=== PATIENT | female | born 1930 | race Caucasian/White ===

== ENCOUNTER 2016-06-12 15:11 | Emergency (ER) | payer OTHER ==
[~2016-06-12] VITALS: Ht 170.2 cm; Wt 65.4 kg
--- NOTE | ~2016-06-12 | EKG ---
[place] [address] [facility] [employer] 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
[~2016-06-12 15:11] MED LIST: ASPIRIN81 M2 PO; HYDROCODON-ACE1 EAC7 PO; HYDROCODONE-AP1 EA11 PO; LEVOTHYROXINE100 MC1 PO; LEVOXYL100 MCG PO; MOBIC7.5 M1 PO; NAPROSYN500 MG PO; NEURONTIN 300300 M1 PO; PRESERVISION T1 EACH PO; RA GLUCOSAMINE PO
[2016-06-12 15:29] LABS: ABSOLUTE NEUTROPHILS 2.9 thou/uL (1.4-8.2); BASOPHILS 1.2 % (0.0-2.0); EOSINOPHILS 2.2 % (0.0-3.0); HEMATOCRIT 39.8 % (37.0-47.0); HEMOGLOBIN 13.3 gm/dL (12.0-15.0); LYMPHOCYTES 39.2 % (24.0-44.0); MCH 29.9 pg (26.0-34.0); MCHC 33.4 g/dL (28.0-37.0); MCV 89.6 fL (80.0-100.0); MONOCYTES 11.1 % (1.0-8.0); PLATELET COUNT 220 thou/uL (150-400); POLYS 46.3 % (36.0-66.0); RBC 4.45 mil/uL (4.20-5.00); RDW 14.5 % (10.5-14.5); WBC 6.2 thou/uL (4.0-11.0)
[2016-06-12 15:30] LABS: MANUAL DIFF NO
[2016-06-12 15:35] LABS: ANION GAP 13 mmol/L (7-16); BUN 17 mg/dL (7-18); CALCIUM 9.3 mg/dL (8.5-10.1); CHLORIDE 101 mmol/L (98-107); CO2 23 mmol/L (21-32); GLUCOSE 118 mg/dL (74-106); POTASSIUM 3.8 mmol/L (3.5-5.1); SODIUM 137 mmol/L (136-145)
[2016-06-12 15:47] LABS: NT-PRO BRAIN NAT PEPTIDE 152 pg/mL (<300); TROPONIN-I < 0.04 ng/mL (<0.04-0.07)
[2016-06-12 16:55] LABS: URINE BILIRUBIN NEGATIVE (Negative); URINE BLOOD NEGATIVE (Negative); URINE COLOR YELLOW; URINE GLUCOSE-RANDOM* NEGATIVE (Negative); URINE KETONES 3+ (Negative); URINE NITRITE NEGATIVE (Negative); URINE PROTEIN (DIPSTICK) TRACE (Negative); URINE SPECIFIC GRAVITY 1.015 (1.003-1.035); URINE UROBILINOGEN 0.2 E.U./dl (0.2-1.0)
[2016-06-12] MEDS ORDERED: ANTIVERT25 MG PO (17:10)
== END 2016-06-12 17:15 | disposition home or self-care (01) ==
LOC: ER 15:11
PROVIDERS: Nurse Practitioner
DX: R42 Dizziness and giddiness (principal); Z90.89 Acquired absence of other organs; Z90.710 Acquired absence of both cervix and uterus; Z88.0 Allergy status to penicillin; Z88.8 Allergy status to other drugs, medicaments and biological substances

== ENCOUNTER → 2018-01-17 | Outpatient (CLI) | payer OTHER ==
[~2018-01-17] MED LIST changes: +ANTIVERT25 MG PO
== END ==
LOC: BC 01:14
DX: Z12.31 Encounter for screening mammogram for malignant neoplasm of breast (principal)

== ENCOUNTER → 2019-02-13 | Outpatient (CLI) | payer OTHER | LOC: RAD 02-10 11:31 | DX: Z12.31 Encounter for screening mammogram for malignant neoplasm of breast (principal) ==

== ENCOUNTER 2020-11-16 09:48 | Inpatient (IN) | payer OTHER ==
[~2020-11-16] VITALS: Ht 162.6 cm; Wt 58.5 kg
--- NOTE | ~2020-11-16 | EMS ---
[place] [id number] EMS Patient Care Report Name: LIZY SZYMANSKI Room #: 208-P ADM IN M.R.#: [id number] Admission: 11/16/20 Attend Phys: Enrrique Leon MD Discharge: Date of : 32 Report #: [id number] THIS REPORT FOR: //name// Report Transmitted: 11/17/2020 12:27 EMS Care Summary [place], [place] Incident [id number] @ 11/16/2020 08:56 Incident Location [address] [place] [address] Patient LIZY SZYMANSKI Female, 89 Years 1930 Patient Address [address] [place] [address] Patient History Dementia, Chief Complaint DIFFICULTY SPEAKING Disposition Transported No Lights/Mildred Dispatch Reason Stroke/CVA Transported To [facility] Narrative MEDIC 30 RESPONDS TO A RESIDENCE ON A REPORTED SICK. UPON ARRIVAL EMS FINDS ELDERLY FEMALE SITTING UPRIGHT IN WHEEL CHAIR WITH PT'S DAUGHTER NEARBY, AND FIREFIGHTERS PROVIDING ASSESSMENT. DAUGHTER REPORTS NOTICING PT HAVING DIFFICULTY SPEAKING THIS MORNING WITH SOME MINOR BALANCE PROBLEMS FOR THE PAST APPROXIMATE 90 MINUTES. DAUGHTER STATES PT APPEARED TO BE AT BASELINE THIS AM LEADING UP TO ONSET OF SYMPTOMS. FIREFIGHTERS DESCRIBE PT HAVING WHAT SEEMS SIMILAR TO EXPRESSIVE DYSPHASIA. PT APPEARS ABLE TO RESPOND VERBALLY TO ASSESSMENT QUESTIONS THE MAJORITY OF THE TIME, HOWEVER NOT ALL OF THE TIME. PT [address] [place] [address] EMS Patient Care Report Name: LIZY SZYMANSKI Room #: 208-P ADM IN M.R.#: [id number] Admission: 11/16/20 Attend Phys: Enrrique Leon MD Discharge: Date of : 32 Report #: [id number] APPEARS TO OCCASIONALLY HAVE A MILD STUTTER FOLLOWED BY INABILITY TO VERBALIZE HER THOUGHTS. WHEN ABLE TO SPEAK, PT'S SPEECH APPEARS NON SLURRED AND MOVEMENT OF MOUTH APPEARS NORMAL WITH NO OBVIOUS DROOP. NO OBVIOUS ONE SIDED EXTREMITY WEAKNESS NOTED. DAUGHTER DESCRIBES BALANCE ISSUES PT HAVING MILD/SLOW LEANING BACKWARD WHILE STANDING SINCE SYMPTOMS BEGAN. PT DENIES RECENT TRAUMA. PT TRANSPORTED WITH ONGOIG ASSESSMENT. REPORT TO STAFF UPON ARRIVAL. Initial Vitals @09:32P: 62,R: 13,BP: 137/81,CO: 3,SpO2: 99, @09:17P: 38,R: 12,CO: 3,SpO2: 99, @09:28P: 63,R: 14,CO: 2,SpO2: 99, @09:15P: 64,R: 13,BP: 153/76,Pain: 0/10,GCS: 15,Glucose: 85,Revised Trauma: 12, Assessments @09:35MENTAL:Person Oriented,Time Oriented,Event Oriented,Place Oriented,SKIN:HEENT:Head/Face: No Abnormalities,Neck/Airway: No Abnormalities,LUNG SOUNDS:ABDOMEN:PELVIS//GI:EXTREMITIES:Left Arm: No Abnormalities,Right Arm: No Abnormalities,Left Leg: No Abnormalities,Right Leg: No Abnormalities,PULSE:Radial: 2+ Normal,NEURO:@09:36MENTAL:Time Oriented,Person Oriented,Event Oriented,Place Oriented,SKIN:HEENT:Head/Face: No Abnormalities,Neck/Airway: No Abnormalities,LUNG SOUNDS:ABDOMEN:PELVIS//GI:EXTREMITIES:Left Arm: No Abnormalities,Right Arm: No Abnormalities,Left Leg: No Abnormalities,Right Leg: No Abnormalities,PULSE:Radial: 2+ Normal,NEURO: Impression Generalized Weakness Procedures @09:08ALS AssessmentResponse: UnchangedSucceeded@09:12StretcherResponse: Unchanged@09:163-Lead ECGResponse: UnchangedSucceeded Timeline 08:53,Call Received 08:53,Dispatch Notified 08:56,Dispatched 08:56,En Route 09:06,On Scene 09:08,At Patient 09:08,ALS Assessment,Response: UnchangedSucceeded, 09:12,Stretcher,Response: Unchanged 09:15,BP: 153/76 M,PULSE: 64,RR: 13 R,SPO2: Ox,ETCO2: ,B,PAIN: 0,GCS: 15, 09:16,3-Lead ECG,Response: UnchangedSucceeded, 09:17,BP: / M,PULSE: 38,RR: 12 R,SPO2: 99 Ox,ETCO2: ,BG: ,PAIN: ,GCS: , 09:28,BP: / M,PULSE: 63,RR: 14 R,SPO2: 99 Ox,ETCO2: ,BG: ,PAIN: ,GCS: , 09:32,BP: 137/81 M,PULSE: 62,RR: 13 R,SPO2: 99 Ox,ETCO2: ,BG: ,PAIN: ,GCS: , [facility] [address] [place] [address] EMS Patient Care Report Name: LIZY SZYMANSKI Room #: 208-P ADM IN M.R.#: [id number] Admission: 11/16/20 Attend Phys: Enrrique Leon MD Discharge: Date of : 32 Report #: [id number] 10:15,Depart Scene 10:15,At Destination 10:22,Call Closed Disclaimer v1.1 Copyright 2020 [employer] This EMS Care Summary contains data elements from the applicable legal record (which may be displayed differently). It is designed to provide pertinent information for the following purposes: continuity of care, clinical quality, and state data reporting. The complete legal record is available to ED staff and administrators of the receiving hospital in [employer]'s Patient Tracker. All data is provided "as is."
[2020-11-16 09:50] VITALS: BP 167/71
[2020-11-16] MEDS ORDERED: CELEXA 20 MG TA20 MG PO (10:08)
[2020-11-16] MEDS ORDERED: MEMANTINE HCL10 MG PO (10:09)
[2020-11-16 10:14] LABS: HEMATOCRIT 39.7 % (37.0-47.0); HEMOGLOBIN 12.9 gm/dL (12.0-15.0); MCH 30.3 pg (26.0-34.0); MCHC 32.6 g/dL (28.0-37.0); MCV 93.2 fL (80.0-100.0); RBC 4.26 mil/uL (4.20-5.00); RDW 14.9 % (10.5-14.5); WBC 6.4 thou/uL (4.0-11.0)
[2020-11-16 10:24] LABS: CALCIUM 9.7 mg/dL (8.5-10.1); CREATININE 1.1 mg/dL (0.6-1.0); POTASSIUM 4.6 mmol/L (3.5-5.1)
[2020-11-16 10:34] LABS: ALBUMIN 3.7 g/dL (3.4-5.0); TOTAL BILIRUBIN 0.5 mg/dL (0.2-1.0); TOTAL PROTEIN 7.3 g/dL (6.4-8.2)
[2020-11-16 11:44] LABS: URINE BILIRUBIN NEGATIVE (Negative); URINE BLOOD NEGATIVE (Negative); URINE CLARITY CLEAR; URINE COLOR YELLOW; URINE GLUCOSE-RANDOM* NEGATIVE (Negative); URINE KETONES NEGATIVE (Negative); URINE LEUKOCYTES-REFLEX NEGATIVE (Negative); URINE NITRITE-REFLEX NEGATIVE (Negative); URINE PROTEIN (DIPSTICK) NEGATIVE (Negative); URINE UROBILINOGEN 0.2 E.U./dl (0.2-1.0)
[2020-11-16 18:01] VITALS: BP 131/59
[2020-11-16 18:30] VITALS: BP 124/49
[2020-11-16 18:50] VITALS: BP 141/76
[2020-11-16 19:40] VITALS: BP 140/67
[2020-11-16 23:18] VITALS: BP 128/66
[2020-11-17 03:06] LABS: GLYCOHEMOGLOBIN (HGB A1C) 5.5 % (4.8-5.6)
[2020-11-17 03:30] VITALS: BP 127/58
[2020-11-17 05:09] LABS: CALCIUM 8.1 mg/dL (8.5-10.1); POTASSIUM 3.9 mmol/L (3.5-5.1)
[2020-11-17 05:13] LABS: CHOLESTEROL 223 mg/dL (<200); HDL CHOLESTEROL 59 mg/dL (>40); LDL CHOLESTEROL 154 mg/dL (<100); TC:HDL 3.8 Ratio (Not establshd); TRIGLYCERIDE 51 mg/dL (<150); VLDL 10 mg/dL (<40)
[2020-11-17 05:23] LABS: HEMATOCRIT 33.2 % (37.0-47.0); HEMOGLOBIN 11.3 gm/dL (12.0-15.0); MCH 31.2 pg (26.0-34.0); MCV 91.8 fL (80.0-100.0); RBC 3.62 mil/uL (4.20-5.00); RDW 14.9 % (10.5-14.5); WBC 6.1 thou/uL (4.0-11.0)
[2020-11-17 05:26] LABS: SERUM ASSESSMENT Clear
[2020-11-17 07:58] VITALS: BP 146/84
--- NOTE | 2020-11-17 08:20 | EKG ---
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: : 1930 Requested By: Yaritza Ceballos Order Number: [id number] MD: Panfilo Adams Measurements Intervals [place] Rate: 68 P: 69 GA: 167 QRS: 25 QRSD: 134 T: 30 QT: 441 QTc: 470 Interpretive Statements Sinus rhythm Right bundle branch block Baseline wander in lead(s) V6 Compared to ECG 06/12/2016 15:21:57 Ventricular premature complex(es) no longer present Electronically Signed On 11-17-2020 8:19:59 CDT by Panfilo Adams [email or web address] <ELECTRONICALLY SIGNED> By: Panfilo Adams MD, [facility] 11/17/20 0819 1010 1010 Panfilo Adams MD, [facility] /EPI
[2020-11-17] MEDS ORDERED: NAPROXEN500 MG PO (08:31)
[2020-11-17] MEDS ORDERED: MEGESTROL40 MG/1 M1 PO (08:32)
[2020-11-17] MEDS ORDERED: VITAMIN D3-ALO1 EACH PO (08:34)
[2020-11-17] MEDS ORDERED: VITAMIN B-125000 MCG PO (08:36)
[2020-11-17] MEDS ORDERED: SUPER THERAVIT1 EACH PO (08:41)
--- NOTE | 2020-11-17 09:13 | NUR ---
ADMIT PROCESS COMPLETED. DENIES COMPLAINTS. PATIENT ORIENTED TO SELF. PULLED IV OUT THIS AM AND TRYING TO GET OUT OF BED. BED ALARM ON AND 3 SIDE RAILS UP. MAINTAIN SAFE ENVIRONEMT. DAUGHTER UPDATED AND WILL BE HERE SOON. PATIENT NOTIFIED DAUGHTER IS ON WAY.
[2020-11-17 12:00] VITALS: BP 146/70
--- NOTE | 2020-11-17 14:05 | NUR ---
INITIAL ASSESSMENT: SW reviewed chart and spoke with nursing and attending physician. Pt was admitted from home due to AMS. Neuro consulted. MRI ordered today. 5N consulted. Pt with hx of dementia. SW met with pt and dtr at bedside. Introduced role of SW. Pt is alert/orientated to self and place. Pt's dtr lives with pt and provides 24 hour care. Prior to admission, pt was able to ambulate with a walker. There are about 14 steps inside the home, which pt has been able to navigate. Pt's dtr states pt became weak yesterday and when sat her down, pt was slow to respond and answer questions. Pt had SBO earlier this year and was hospitalized at [facility]. Pt was on the inpt acute rehab unit at [facility] for about week, then went home with HH. Pt's dtr was unsure of HH provider. Pt's PCP is Dr. Eugenia Bueno in [place]. Pt's neurologist is Dr. Ramos at [facility]. Pt's dtr is agreeable with pt going to if accepted. PT/OT have evaluated pt. Awaiting input from at this time. SW has discussed case with rehabilitation attendant. SW updated attending physician. SW is following to assist as needed with discharge planning.
[2020-11-17 16:47] VITALS: BP 135/67
[2020-11-17 19:59] VITALS: BP 134/63
--- NOTE | 2020-11-17 20:12 | NUR ---
PT ALERT AND ORIENTED TIMES TWO. VSS. IVF INFUSING PER ORDER. PT DENIES PAIN/SOA. PT UP TO THE BSC WITH ASSIST OF ONE. PT TOLERATES MEDS AND MEALS. PT DAUGHTER AT BEDSIDE FOR MOST OF THE SHIFT. WILL CONTINUE TO MONITOR.
--- NOTE | 2020-11-18 05:25 | NUR ---
Assumed pt's care beginning of this pm shift. Oriented to self. Confused. Dtr at bedside beginning of shift. Pt took meds with no issues. SR tele with PVCs. Pt denies CP this shift. Melatonin given x1 for sleep. Pt slept well this shift. Fall precaution remains in place. Nursing to continue to monitor.
[2020-11-18 05:45] VITALS: BP 151/65
[2020-11-18 07:30] VITALS: BP 160/72
[2020-11-18 11:10] VITALS: BP 132/65
--- NOTE | 2020-11-18 13:05 | 2DMMODE ---
[facility] [place] [address] 2 D/M-MODE ECHOCARDIOGRAM Name: STEPHONLIZY JEROME Room #: 208-P ADM IN M.R.#: [id number] Admission: 11/16/20 Attend Phys: Enrrique Leon MD Discharge: Date of : 32 Report #: [id number] THIS REPORT FOR: cc: YIFAN TRAN HUONG DO Lammoglia, Francisco J. MD ~ APPROVED REPORT Study performed: 11/18/2020 11:36:14 EXAM: Comprehensive 2D, Doppler, and color-flow Echocardiogram Patient Location: In-Patient Room #: 208 BSA: 1.64 HR: 208 bpm BP: 151/65 mmHg Rhythm: NSR Other Information Study Quality: Good Indications CVA/TIA 2D Dimensions IVSd: 12.01 (7-11mm) LVOT Diam: 21.93 (18-24mm) LVDd: 36.54 mm PWd: 10.12 (7-11mm) Ascending Ao: 25.63 (22-36mm) LVDs: 25.44 (25-40mm) Left Atrium: 31.62 (27-40mm) Aortic Root: 30.85 mm LV Single Plane 4CH: 52.76 % Volumes Left Atrial Volume (Systole) Single Plane 4CH: 26.80 mL Single Plane 2CH: 16.82 mL Biplane LA Volume: 31.00 mL LA ESV Index: 19.00 mL/m2 Aortic Valve AoV Peak Marc.: 1.29 m/s AO Peak Gr.: 6.70 mmHg LVOT Max P.14 mmHg LVOT Max V: 1.13 m/s [place] Vmax: 3.33 cm2 [facility] [address] [address] 2 D/M-MODE ECHOCARDIOGRAM Name: LIZY SZYMANSKI Room #: [address] [place] [address] IN ..#: [id number] Admission: 11/16/20 Attend Phys: Stiven Oliva Discharge: Date of : 32 Report #: [id number] AI Vmax: 3.58 m/s AI [place]: 1.59 m/s2 AI PHT: 806.70 ms Mitral Valve E/A Ratio: 0.7 MV Decel. Time: 177.91 ms MV E Max Marc.: 0.39 m/s MV A Marc.: 0.58 m/s MV PHT: 51.59 ms IVRT: 106.11 ms Pulmonary Valve PV Peak Marc.: 1.07 m/s PV Peak Gr.: 4.54 mmHg Tricuspid Valve TR Peak Marc.: 2.41 m/s RAP Estimate: 7.00 mmHg TR Peak Gr.: 23.30 mmHg RVSP: 30.00 mmHg Left Ventricle The left ventricle is normal size. There is normal LV segmental wall motion. Mild concentric left ventricular hypertrophy. Left ventricular systolic function is normal. The left ventricular ejection fraction is within the normal range. LVEF is 60-65%. Grade I - abnormal relaxation pattern. Right Ventricle The right ventricle is normal size. The right ventricular systolic function is normal. Atria The left atrium size is normal. The right atrium size is normal. Aortic Valve Aortic valve is trileaflet. Mild to moderate aortic regurgitation. There is no aortic valvular stenosis. Mitral Valve The mitral valve is normal in structure. Mild mitral regurgitation. No evidence of mitral valve stenosis. Tricuspid Valve The tricuspid valve is normal in structure. Mild tricuspid regurgitation. PAP 30 mmHg [facility] [address] [place] [address] 2 D/M-MODE ECHOCARDIOGRAM Name: LIZY SZYMANSKI Room #: 208-P [facility] IN .R.#: [id number] Admission: 11/16/20 Attend Phys: Stiven Oliva Discharge: Date of : 32 Report #: [id number] Pulmonic Valve The pulmonary valve is normal in structure. There is no pulmonic valvular regurgitation. Great Vessels The aortic root is normal in size. IVC is normal in size and collapses >50% with inspiration. Pericardium There is no pericardial effusion. <Conclusion> The left ventricle is normal size. Mild concentric left ventricular hypertrophy. There is normal LV segmental wall motion. LVEF is 60-65%. Aortic valve is trileaflet. Mild to moderate aortic regurgitation. The mitral valve is normal in structure. Mild mitral regurgitation. The tricuspid valve is normal in structure. Mild tricuspid regurgitation. PAP 30 mmHg The pulmonary valve is normal in structure. The aortic root is normal in size. There is no pericardial effusion. <ELECTRONICALLY SIGNED> By: Brandon Santana MD 11/18/20 1305 1305 1305 Brandon Santana MD /INF
[2020-11-18] MEDS ORDERED: ASPIRIN EC325 M1 PO (13:40)
[2020-11-18] MEDS ORDERED: RISPERIDONE 00.25 MG PO (13:40)
[2020-11-18] MEDS ORDERED: TYLENOL325 MG PO (13:40)
[2020-11-18 15:30] VITALS: BP 132/59
--- NOTE | 2020-11-23 14:35 | HC ---
[facility] [place] [address] CONSULTATION Name: STEPHONLIZY CANO Room #: 208-P [facility] IN M.R.#: [id number] Admission: 11/16/20 Attend Phys: Enrrique Leon MD Discharge: 11/18/20 Date of : 32 Report #: [id number] THIS REPORT FOR: cc: YIFAN TRAN,Brandon Spence MD ~ DATE OF SERVICE: 11/17/2020 HISTORY OF PRESENT ILLNESS: The patient is an 89-year-old white female who was admitted with weakness and concern of a possible stroke. Daughter notes that she has had a gradual decline with increased weakness, difficulty ambulating and there was a point when she did not answer questions and was looking around. She had recently been started on Namenda with a prior history of dementia. She was seen by Neurology and a workup is underway, thought to have an apparent TIA. We note that she can be on aspirin and she has dyslipidemia and she should be on a statin. We are seeing her in rehabilitation medicine consultation. PAST MEDICAL HISTORY: Includes hypothyroidism, depression, anxiety and premorbid dementia. MEDICATIONS: Please see the full medication listing. SOCIAL HISTORY: She lives in a house, one step plus another step to get in. Her daughter is there who provides 24/7 assistance. The patient has a Rollator walker. Her bedroom is upstairs and she does go up the steps with the daughter assisting. Shower is upstairs. Daughter is considering moving the bed onto the ground floor. REVIEW OF SYSTEMS: The patient has had problems with knee arthritis and has had injections of both knees with corticosteroid. There are currently plans underway for her to follow up with Dr. Novoa for gel injections of both knees. Otherwise, there are no current complaints of chest pain, shortness of breath or abdominal discomfort. PHYSICAL EXAMINATION: GENERAL: An 89-year-old slender white female in no obvious distress. VITAL SIGNS: Last recorded temperature 36.9, pulse 74, respirations 20, blood pressure 146/70. NEUROLOGIC: She is alert, pleasant, oriented. Tends to defer to her daughter, but she will speak in short sentences, can follow basic 1-step commands without difficulty. Facies were symmetric. EOMs appeared full. She did reasonably well with nose of both upper extremities, although she needed some cues. Tone appeared to be intact. I would grade her strength at a 3+ to 4-/5. DTRs are trace to 1. In her lower extremities, no focal calf swelling, functional range of motion, strength is grade 3+ to 4-/5. DTRs are trace to 1. [address] [address] CONSULTATION Name: LIZY SZYMANSKILOTTE Room #: 208-P [facility] IN M.R.#: [id number] Admission: 11/16/20 Attend Phys: Enrrique Leon MD Discharge: 11/18/20 Date of : 32 Report #: [id number] ASSESSMENT: An 89-year-old white female with the following problem list: 1. Apparent transient ischemic attack, questionable stroke with workup underway. Neurology is consulting. 2. Premorbid history of dementia, nevertheless living in the community with daughter closely involved. 3. Bilateral knee degenerative arthritis with intermittent injections and planned injections. 4. Hypothyroidism. 5. History of anxiety. 6. Former smoker. PLAN: Neurology workup is underway and therapy evaluation is to assess her as well. We will be glad to follow along regarding her rehab therapy issues as she further stabilizes. Thank you for asking us to assist in this patient's care. <ELECTRONICALLY SIGNED> By: Brandon Turpin MD 11/23/20 1435 1249 [id number] Brandon Turpin MD /nt
--- NOTE | 2020-11-25 10:52 | HC ---
[facility] [place] [address] CONSULTATION Name: STEPHONLIZY CANO Room #: 208-P [facility] IN M.R.#: [id number] Admission: 11/16/20 Attend Phys: Enrrique Leon MD Discharge: 11/18/20 Date of : 34 Report #: [id number] THIS REPORT FOR: cc: YIFAN TRAN,YIFAN Maynard,Oskar Sweet MD ~ DATE OF SERVICE: 11/16/2020 HISTORY OF PRESENT ILLNESS: This is an 89-year-old female patient who was discussed with the Emergency Room physician multiple times. She has dementia in the baseline. According to the family, she follows up with Dr. Ramos. Her dementia looks pretty advanced. She sometimes remember the month and the date and sometimes she does not. According to the daughter, she looked worse today and that is the reason she brought her to the hospital. Since then, daughter believes that the patient has returned back to the baseline. Daughter provides 24-hour supervision to this patient. REVIEW OF SYSTEMS: Positive for what looks like advanced dementia that could indicate that she has multiple other problems in the past and which include hysterectomy, thyroidectomy, and she has dementia workup. It is not clear what dementia workup was done because I do not have the records. She was recently started on memantine and she is on citalopram, I am not sure what dosages she is on. The 14-point review of system was carried out and this was a relevant 14-point review of system. PAST MEDICAL HISTORY: Positive for dementia. FAMILY HISTORY: Unremarkable. SOCIAL HISTORY: She does not smoke. PHYSICAL EXAMINATION: PSYCHIATRIC: She is alert. She is responsive. She can talk. Daughter thinks talked as back to the baseline, but it is difficult for me to tell. She has to be really pushed to be able to talk. She thinks it is January. NEUROLOGIC: Rest of the cranial nerve and neuromuscular examination was somewhat difficult because of the patient's dementia, but I do not see any focality, none has been noticed by other physicians. She says she can feel on both sides. She does appear to have reflexes, but there is diminished. She does not understand the instructions due to the cerebellar sign. I could not look at the fundus. CARDIAC: Examinations appear unremarkable. LUNGS: No respiratory difficulty was noticed. NECK: No thyroid masses, no carotid bruit. She does not have any edema. HEENT: Her hearing and vision looks okay. VITAL SIGNS: Blood pressure is 128/68, respirations 18, pulse is 87. [address] [address] CONSULTATION Name: LIZY SZYMANSKI Room #: [address] [place] [address] IN M.R.#: [id number] Admission: 11/16/20 Attend Phys: Enrrique Leon MD Discharge: 11/18/20 Date of : 32 Report #: [id number] LABORATORY DATA: Indicate a white count of 6.4. IMAGING: Done was CT that was unremarkable. IMPRESSION: Aggravation of dementia, which appeared to be transient. It is difficult to tell what happened to the patient. It is also difficult to tell whether it happened to the patient because some symptom it looks like she woke up this morning and some is going on for a few days. RECOMMENDATION: 1. I had asked the Emergency Room physician to order an MRI in this patient that was ordered stat, but it is not done yet and we will look at it. 2. We will also get an EEG done. 3. Conservative management will be desired in this patient. Thank you very much for this referral. <ELECTRONICALLY SIGNED> By: Oskar Us MD 11/25/20 1052 [id number] Oskar Us MD /nt
--- NOTE | 2020-11-25 10:53 | EEG ---
[facility] [place] [address] ELECTROENCEPHALOGRAM Name: LIZY SZYMANSKI Room #: 208-P [facility] IN M.R.#: [id number] Admission: 11/16/20 Attend Phys: Enrrique Leon MD Discharge: 11/18/20 Date of : 34 Report #: [id number] THIS REPORT FOR: //name// DATE OF SERVICE: 11/17/2020 The patient is being evaluated for an episode of altered mental status. EEG was done by placing the electrode by standard 10-20 system of electrode placement. Both referential and sequential montages were used for recording. Background activity in this patient's EEG is about 8 Hz and 30 microvolt. The patient went to sleep, that is associated with bilateral slowing and vertex sharp waves. Throughout the record, no active epileptiform activity was noticed. IMPRESSION: This patient's EEG is abnormal because it is intermixed with theta range slowing on both sides. No active epileptiform activity was noticed. <ELECTRONICALLY SIGNED> By: Oskar Us MD 11/25/20 1053 [id number] Oskar Us MD /nt
== END 2020-11-18 16:01 | DRG 682 ==
LOC: ER 09:48 → EROBS 12:53 → 2N 12:53
PROVIDERS: Psychiatry & Neurology Neuromuscular Medicine; Student in an Organized Health Care Education/Training Program; ADMIT Hospitalist; ATTEND Hospitalist
DX: N17.9 Acute kidney failure, unspecified (principal); G93.41 Metabolic encephalopathy; R47.01 Aphasia; E89.0 Postprocedural hypothyroidism; F03.90 Unspecified dementia, unspecified severity, without behavioral disturbance, psychotic disturbance, mood disturbance, and anxiety; E78.5 Hyperlipidemia, unspecified; F32.9 Major depressive disorder, single episode, unspecified; F41.9 Anxiety disorder, unspecified; M17.0 Bilateral primary osteoarthritis of knee; M41.9 Scoliosis, unspecified; Z20.822 Contact with and (suspected) exposure to COVID-19; Z90.710 Acquired absence of both cervix and uterus; Z79.899 Other long term (current) drug therapy; Z88.0 Allergy status to penicillin; Z88.8 Allergy status to other drugs, medicaments and biological substances; Z87.891 Personal history of nicotine dependence
CPT/HCPCS: 10081

== ENCOUNTER 2020-11-18 10:51 | Inpatient (IN) | payer OTHER ==
[~2020-11-18] VITALS: Ht 162.6 cm; Wt 55.8 kg
[~2020-11-18 10:51] MED LIST changes: +CELEXA 20 MG TA20 MG PO; +MEGESTROL40 MG/1 M1 PO; +MEMANTINE HCL10 MG PO; +NAPROXEN500 MG PO; +SUPER THERAVIT1 EACH PO; +VITAMIN B-125000 MCG PO; +VITAMIN D3-ALO1 EACH PO
[2020-11-18] MEDS ORDERED: ASPIRIN EC325 M1 PO (13:40)
[2020-11-18] MEDS ORDERED: TYLENOL325 MG PO (13:40)
[2020-11-18] MEDS ORDERED: RISPERIDONE 00.25 MG PO (13:40)
[2020-11-18 16:10] VITALS: BP 129/73
--- NOTE | 2020-11-18 16:10 | NUR ---
PT ARRIVED TO ROOM ACCOMPANIED BY SON TANYA. SON WAS NOT SURE IF THERE WAS A DPOA IN THE FAMILY, HE WAS GOING TO ASK HIS SISTER CHOCO. TANYA NUMBER IS [phone], CHOCO NUMBER IS [phone]. CHOCO HAS LIVED AT [facility] SINCE JUNE THIS YEAR. PT FELL LAST YEAR IN OCTOBER AND BROKE LEFT ARM, LEFT WRIST, AND LEFT SHOULDER. PT SON STATED SINCE THE FALL SHE HAS BEEN GOING [place] SINCE. PT HAD A TWISTED BOWEL 05/02. PT FELL IN ANOTHER HOSPITAL DUE TO BEING ON NARCOTICS AND PULLED IV OUT AND WANTED TO LEAVE AMA, PT FX LEFT WRIST AT THAT TIME. PT HAS HX OF SLEEP APNEA WITHOUT A CPAP MACHINE. PT SON STATED SHE USED A ROLLATOR WALKER AT HOME AND WAS ABLE TO DRESS SELF, SHOWER, AND FEED SELF. SON STATED SHE HAS ISSUES WITH BALANCE NOW. CHOCO MOVED FROM [place], [place] TO BE WITH HER MOM AND TAKE CARE OF HER AT HER OWN HOME. PT WAS SLEEPING DURING THE ADMISSION. SON ANSWERED MOST QUESTIONS.
--- NOTE | 2020-11-18 17:15 | NUR ---
PT WAS ABLE TO FEED SELF DINNER. PT DID HAVE A COUGH AFTER EATING AND DRINKING.
[2020-11-18 20:20] VITALS: BP 128/66
--- NOTE | 2020-11-19 01:48 | NUR ---
PT ASSESSMENT COMPLETED AND VSS. MEDS GIVEN ORDERED AND WELL TOLERATED. FALL PRECAUTIONS IN PLACE. SUPPORTIVE DAUGHTER AT BEDSIDE EARLY DURING SHIFT. PT UP TO THE BSC WITH ASST/GAIT/WALKER. ASST WITH REPOSITION FOR COMFORT. SLEEPING WELL. WILL CONTINUE TO MONITOR FREQUENTLY.
--- NOTE | 2020-11-19 01:50 | NUR ---
PT REMAINS PLEASANTLY CONFUSED AND HAS NOT BEEN IMPULSIVE SO FAR DURING THE SHIFT.
[2020-11-19 05:27] LABS: HEMOGLOBIN 12.4 gm/dL (12.0-15.0); MCH 30.8 pg (26.0-34.0); MCHC 33.6 g/dL (28.0-37.0); MCV 91.6 fL (80.0-100.0); RBC 4.04 mil/uL (4.20-5.00); RDW 14.6 % (10.5-14.5); WBC 5.3 thou/uL (4.0-11.0)
[2020-11-19 05:59] LABS: CREATININE 0.9 mg/dL (0.6-1.0); POTASSIUM 4.3 mmol/L (3.5-5.1)
[2020-11-19 08:00] VITALS: BP 129/74
--- NOTE | 2020-11-19 09:13 | NUR ---
PT LYING IN BED EATING BREAKFAST WITH RT HAND. PT DID SEEM SUSPICIOUS WITH THIS TURRET LATHE MACHINIST WHEN GIVING HER AM MEDS. PT NEEDED ENCOURAGED TO TAKE AM MEDS. PT WAS HAVING ISSUES WITH GETTING VITAMIN DOWN. PT DTR AT BEDSIDE AND ENCOURAGEING HER TO TAKE HER MEDS. DTR STATED THAT THIS IS NEW FOR HER. PT APHASIC AT TIMES AND DOES SAY A FEW WORDS.
--- NOTE | 2020-11-19 11:14 | NUR ---
Cm visited with daughter Dipti at bedside, patient getting ready to work with OT. Intro to cm and dcp. Patient and daughter live together, she is his urgent care. Has walker and was able to walk with walker prior to hospital. Have 14 stairs inside the home. Been to [facility] rehab in past. Will cont. following as needed
--- NOTE | 2020-11-19 13:19 | NUR ---
Nutrition: pt admitted to rehab unit with TIA, medical complexity, general debility. Consult received. Daughter present during visit who reports pts weight going back up from a low of 112# during initial COVID wave/living alone. Then in april pt required bowel surgery. Past 6-7 months weights increasing with use of megace and improved oral intake. Current weight 123# is close to UBW. Eating 100% of meals so far and drinks ensure BID. Consider low nutrition risk.
--- NOTE | 2020-11-19 19:28 | NUR ---
DTR BROUGHT IN DPOA PAPER WORK AND DID SIGN ADMISSION PAPERS. PT PUT BACK TO BED AND DIDN'T WANT TO USE BSC PRIOR TO GOING TO BED. PT STATED IT DIDN'T MATTER. PT WAS ABLE TO STAND AND NEEDED DIRECTION TO STEP BACK TO FEEL BED ON BACK OF LEGS.
[2020-11-19 19:43] VITALS: BP 118/67
--- NOTE | 2020-11-20 00:46 | NUR ---
assumed care approx 1900 evening 11/19. pt lying in bed with head of bed elevated at change of shift. daughter at bedside. pt quiet, calm, cooperative. pt took hs meds with water tolerating well. pt appears to be sleeping soundly. bed alarm on and call light in reach. will continue to monitor.
[2020-11-20 08:00] VITALS: BP 135/75
--- NOTE | 2020-11-20 10:05 | NUR ---
ASSUMED CARE AT 0700. PATIENT IS ALERT AND ORIENTED TO SELF ONLY. CONFUSION R/T DEMENTIA. PATIENT CHEN'S, WASTEWATER TREATMENT SUPERVISOR ARE EQUAL. LUNGS ARE CLEAR AND DEMINISHED. ABD IS SOFT WITH BSX4. PATIENT CAN BE INCONTINENT OF URINE AND STOOL. UP IN THE CHAIR WITH O.T. S.T. HERE TO DO BREAKFAST WITH PATIENT. IV IN RIGHT FORARM IS PATIENT AND INTACT. FALL AND SAFETY PROTOCOLS IN PLACE. DENIES PAIN AT THIS TIME. CONTINUES TO PROGRESS SLOWLY TOWARDS D/C GOALS. WILL CONTINUE TO MONITER.
[2020-11-20 20:03] VITALS: BP 152/57
--- NOTE | 2020-11-21 00:32 | NUR ---
PT ALERT AND ORIENTED X 1. AMB TO BR WITH WALKER AND ASSIST X 2. REQUIRES FREQUENT CUEING WITH USE OF WALKER. INCONT OF URINE. PT TOOK HS MEDS WITH WATER WITHOUT DIFFICULTY. PT DENIES PAIN OR DISCOMFORT. BED ALARM ON FOR SAFETY. PT APPEARS TO BE SLEEPING ON HOURLY ROUNDS.
[2020-11-21 07:15] VITALS: BP 150/76
--- NOTE | 2020-11-21 13:12 | NUR ---
ASSUMED CARE AT 0700. PATIENT IS ALERT AND ORIENTED X1. PATIENT HAS DEMENTIA. PATIENT CHEN'S, LICENSING REPRESENTATIVE ARE EQUAL. LUNGS ARE CLEAR AND DEMINISHED. ABD IS SOFT WITH BSX4. PATIENT IS UP IN CHAIR FOR MEALS. DAUGHTER AT BEDSIDE. PATIENT IS UP WITH P.T. TO AMBULATE TO THE BATHROOM. FALL AND SAFETY PROTOCOLS IN PLACE. IV DC'D. PATIENT TOLERATED PROCEDURE WELL. DENIES PAIN AT THIS TIME. CONTINUES TO PROGRESS SLOWLY TOWARDS D/C GOALS. WILL CONTINUE TO MONITER.
[2020-11-21 20:20] VITALS: BP 135/74
--- NOTE | 2020-11-22 02:57 | NUR ---
PT ASSESSMENT COMPLETED AND VSS. MEDS GIVEN ORDERED AND WELL TOLERATED. FALL PRECAUTIONS IN PLACE. SUPPORTIVE SON VISITING WITH PT EARLY DURING THE SHIFT. UP TO THE BSC WITH ASST/GAIT/WALKER. PT VERY UNSTEADY AND ANXIOUS ABOUT TRANSFERING WHICH MADE IT HARDER. PT VOIDING LARGE AMOUNT OF URINE. 0 BM. ASST WITH REPOSITION IN BED USING PILLOWS FOR COMFORT. PT HAVING GENERALIZED PAIN. TYLENOL HELPFUL. PT SLEEPING WELL AT THIS TIME. WILL CONTINUE TO MONITOR FREQUENTLY.
[2020-11-22 04:02] VITALS: BP 135/74
[2020-11-22 07:15] VITALS: BP 148/66
--- NOTE | 2020-11-22 08:16 | NUR ---
PT WORKING WITH ST THIS AM. PT TOLERATING DIET WITHOUT ANY COUGHING. PT DID TAKE MEDS ONE AT WITH THIN WATER. PT LUNGS CLEAR. PT NEEDS ASSIST WHEN TRANSFERING FROM BED TO W/C. PT ORIENTED TO SELF. PT SMILES AND COOROPERATIVE WITH THERAPY.
--- NOTE | 2020-11-22 15:03 | NUR ---
PT ATE WELL FOR LUNCH. PT DIDN'T NEED ANY ASSISTANCE WITH EATING. PT DRANK ENSURE DRINK ALSO.
[2020-11-22 20:00] VITALS: BP 138/66
--- NOTE | 2020-11-23 00:52 | NUR ---
PT ASSESSMENT COMPLETED AND VSS. MEDS GIVEN ORDERED AND WELL TOLERATED. FALL PRECAUTIONS IN PLACE. UP TO THE BSC WITH ASST/GAIT/WALKER. MAX ASST. VOIDING MODERATE AMOUNT OF YELLOW URINE. SUPPORTIVE SON IN TO SEE PT THIS EVENING. PT AGITATED AND CLIMBED OUT OF BED. PRN MEDICATION HELPFUL. PT SLEEPING WELL. WILL CONTINUE TO MONITOR FREQUENTLY.
--- NOTE | 2020-11-23 08:17 | NUR ---
PT SITTING IN BED THIS AM WORKING WITH ST. PT FEEDING SELF WITHOUT ANY ISSUES. PT ORIENTED TO SELF. PT WAS TOLD TO STOP EATING AND TAKE MEDICATION. PT STILL EATING, TRAY NEEDED TO BE MOVED IN ORDER TO FOCUS ON TAKING MEDS. PT TOOK MEDICATION WITHOUT ANY ISSUES. PT TOLERATING CLEAR LIQUIDS. PT LUNGS CLEAR. PT UP WITH 1-2 ASSIST VIA WALKER AND W/C. PT DID HAVE CONFUSION DURING THE ONEL PER NIGHT RN. PT EASILY REDIRECTED AFTER EXPLAINING ORIENTATION TO HOSPITAL.
[2020-11-23 08:20] VITALS: BP 136/78
[2020-11-23 09:05] LABS: URINE BILIRUBIN NEGATIVE (Negative); URINE BLOOD NEGATIVE (Negative); URINE CLARITY SL CLOUDY; URINE COLOR YELLOW; URINE GLUCOSE-RANDOM* NEGATIVE (Negative); URINE KETONES NEGATIVE (Negative); URINE LEUKOCYTES-REFLEX TRACE (Negative); URINE NITRITE-REFLEX NEGATIVE (Negative); URINE PROTEIN (DIPSTICK) NEGATIVE (Negative); URINE SPECIFIC GRAVITY 1.015 (1.005-1.035); URINE UROBILINOGEN 0.2 E.U./dl (0.2-1.0)
--- NOTE | 2020-11-23 12:20 | NUR ---
Team meeting, recommendation: Reported more restless and anxiety at night. Needing more redirection in evening time. Daughter is involved. Maxed verbal ques. transfers mod assist. Min assist with fww. [facility] soft diet with thin liquid with possible advancement in diet. Has 4ww but will need fww. Dc 11/30 with hh (pt, ot, nursing). Baby monitor to see her at night and gait on stairs.
--- NOTE | 2020-11-23 14:27 | NUR ---
I have reviewed the documentation by BRANDYN NARAYANAN from 11/23/20 to 11/23/20 and I concur with it. LINDA VELASQUEZ M
[2020-11-23 20:11] VITALS: BP 156/82
--- NOTE | 2020-11-24 03:30 | NUR ---
ASSUMED CARE AT 1900 OF 11/23. PATIENT IS A&O TO SELF, REQUIRES CONSTANT REDIRECTION AND REORIENTATION. COOPERATIVE WITH CARES. MODERATE ASSIST USING GB AND WALKER FOR TRANSFER AND AMBULATION TO TOILET.FALL PRECAUTIONS IN PLACE AND FREQUENT OBSERVATION IMPLEMENTED. NO CONCERNS AT THIS TIME, WILL CONTINUE TO MONITOR.
[2020-11-24 07:15] VITALS: BP 154/84
--- NOTE | 2020-11-24 09:01 | NUR ---
I have reviewed the documentation by Maru Hawthorne from 11/22/20 to 11/22/20 and I concur with it. KAMLA VAZQUEZ
--- NOTE | 2020-11-24 11:34 | NUR ---
PATIENT IS ALERT, AND ORIENTED X 1, SHE IS FORGETFUL, CONFUSED, REQUIRES CUE, AND ASSIST OF STAFF TO FEED. PATIENT ACTUALLY OBSERVED ATTEMPTING TO PURE ENSURE TO EGGS, SHE REQUIRES CONSTANT REDIRECTION. LCTA, RESP EVEN/UNLABORED, NO SOS/CYANOSIS NOTED. BS+X4, ABD SOFT, NON-TENDER TO TOUCH. PATIENT TOOK ALL MEDICATION WHOLE ONE AT A TIME. PATIENT HAS HAD BOWEL MOVEMENT X 2 THIS MORNING. PATIENT AMBULATE WITH ASSIST OF FRONT WHEEL WALKER, AND GAIT BELT, GAIT IS UNSTEADY. PATIENT CAN BE IMPULSIVE, GETS OUT OF CHAIR UNEXPECTEDLY. CHAIR/BED ALARM IN PLACE. ALL FALL PRECAUTIONS IN PLACE, NO SIGN OF ACUTE DISTRESS NOTED AT THIS TIME, CALL LIGHT IN REACH, WILL CONTINUE TO MONITOR FOR SAFETY.
--- NOTE | 2020-11-24 14:25 | NUR ---
When visiting with daughter after team meeting on sunday, education on use of baby monitor, lift alert and not doing stairs with out assistance. Referral sent to Annam[facility] miller and is able to accept for hh needs.
[2020-11-24 19:15] VITALS: BP 136/66
--- NOTE | 2020-11-25 04:50 | NUR ---
11-24-20 CARE TRANSFERRED 1899. LATER PT AAOX1, VSS, RR EVEN AND NONLABORED ON RA, LUNGS CLEAR/DIMISHED AT BASES, HT RR, ABD SOFT/FLAT/ACTIVE. PT PLESANTLY CONFUSED BUT REMAINS CALM AND COOPERATIVE. PT DENIES PAIN. DURING MEDICATION ADMIN PT REPORTED PAIN, HAS BEEN MANAGED WITH PRN MEDICATION. ASSISTED PT INTO BED, USE OF GAIT BELT. PT BED WAS ADJUSTED FOR COMFORT. PT WILL CONTINUE TO BE MONITOR.
--- NOTE | 2020-11-25 07:40 | NUR ---
PT IN BED THIS AM. PT ORIENTED TO SELF AND PLACE. PT STATED SHE WAS SOMEWHERE WHERE WE HELP PEOPLE. ASKED WHAT SEASON IT WAS SHE DIDN'T KNOW. STATED IT WAS FALL, ASKED PT WHAT SHE LIKED ABOUT FALL. PT STATED SHE LIKES THE COLORS. PT WAS IMPULSE THIS AM AND NOT CALLING FOR ASSISTANCE BEFORE GETTING UP. PT BED ALARM ACTIVATED. PT WAS CONT. OF URINE IN BRIEF THIS AM.
[2020-11-25 08:37] VITALS: BP 147/51
--- NOTE | 2020-11-25 09:26 | NUR ---
PT TOOK MEDS WITHOUT ANY ISSUES. PT TOOK MEDS WITH THIN WATER, SMALLER PILLS ARE OK IF A COUPLE AT A TIME.
--- NOTE | 2020-11-25 12:57 | NUR ---
Nutrition follow up: Pt noted with excellent oral intake at meals. Supplement intake variable 50-75%. No new weight, but intake appears adequate to maintain. Last BM 11/25. Remains low nutrition risk with interventions in place. Recommend obtain current weight.
--- NOTE | 2020-11-25 12:58 | NUR ---
Please obtain current weight r/t hx weight loss
--- NOTE | 2020-11-25 14:03 | NUR ---
spoke with son violeta via phone call, had question about memory care for the future, and JAIL. CM left, JAIL list and memory care list of choice. Will cont following as needed for dc needs.
--- NOTE | 2020-11-25 17:00 | NUR ---
SON IS HERE VISITING PT. PT DIDN'T WANT TO LAY DOWN EARILER, PT WANTED TO STAY UP IN THE W/C.
[2020-11-25 19:30] VITALS: BP 127/77
--- NOTE | 2020-11-25 23:30 | NUR ---
ALERT AND ORIENTED X 1, CONFUSED. UP IN RECLINER ALL EVENING. TRANSFERRED TO BED AT WITH ASSIST X 2. PT TOOK HS MEDS WITH WATER WITHOUT DIFFICULTY. PT DENIES PAIN OR DISCOMFORT. BED ALARM ON FOR SAFETY. PT APPEARS TO BE SLEEPING ON HOURLY ROUNDS.
[2020-11-26 04:43] LABS: ABSOLUTE NEUTROPHILS 2.8 thou/uL (1.4-8.2); EOSINOPHILS 3.9 % (0.0-3.0); HEMATOCRIT 31.9 % (37.0-47.0); HEMOGLOBIN 10.9 gm/dL (12.0-15.0); MCH 31.2 pg (26.0-34.0); MCHC 34.2 g/dL (28.0-37.0); MCV 91.2 fL (80.0-100.0); MONOCYTES 11.9 % (1.0-8.0); PLATELET COUNT 216 thou/uL (150-400); POLYS 51.2 % (36.0-66.0); RBC 3.49 mil/uL (4.20-5.00); RDW 14.3 % (10.5-14.5); WBC 5.4 thou/uL (4.0-11.0)
[2020-11-26 04:58] LABS: CALCIUM 8.8 mg/dL (8.5-10.1); CREATININE 0.9 mg/dL (0.6-1.0); MAGNESIUM 1.9 mg/dL (1.8-2.4); POTASSIUM 3.8 mmol/L (3.5-5.1)
[2020-11-26 07:15] VITALS: BP 147/83
--- NOTE | 2020-11-26 07:52 | NUR ---
ASSUMED CARE AT 0700. PATIENT IS ORIENTED TO SELF ONLY. PATIENT IS CONFUSED. PATIENT HAS HX OF DEMENTIA. PATIENT CAN BE REDIRECTED . LUNGS ARE CLEAR AND DEMINISHED. ABD IS SOFT WITH BSX4. PATIENT IS IMPULSIVE AT TIMES. PATIENT IS PATIENT IS UP WITH 1 WITH GAIT BELT AND WALKER. FALL AND SAFETY PROTOCOLS IN IN PLACE. DENIES PAIN AT THIS TIME. CONTINUES TO PROGRESS SLOWLY TOWARDS D/C GOALS. WILL CONTINUE TO MONITER.
--- NOTE | 2020-11-26 10:59 | NUR ---
Cont. working with therapy on acute rehab. Will cont. with discharge planning as needed for dc needs. DC 11/30 temitope dodson and possible private duty in home as well.
--- NOTE | 2020-11-26 14:31 | NUR ---
I have reviewed the documentation by Maru Hawthorne from 11/26/20 to 11/26/20 and I concur with it. KAMLA VAZQUEZ
[2020-11-26 19:18] VITALS: BP 147/73
--- NOTE | 2020-11-27 00:22 | NUR ---
PT ALERT AND ORIENTED X 1, CONFUSED. IMPULSIVE AT TIMES. AMB TO BR WITH WALKER AND ASSIST X 1 WITHOUT DIFFICULTY. PT TAKES MEDS WITH WATER WITHOUT DIFFICULTY. PT DENIES PAIN OR DISCOMFORT. BED ALARM ON FOR SAFETY. PT CHECKED ON HOURLY ROUNDS.
[2020-11-27 08:24] VITALS: BP 135/69
--- NOTE | 2020-11-27 14:04 | NUR ---
I have reviewed the documentation by Maru Hawthorne from 11/27/20 to 11/27/20 and I concur with it. KAMLA VAZQUEZ
--- NOTE | 2020-11-27 15:29 | NUR ---
PATIENT CARE ASSUMED AT 0700 - PATIENT ALERT TO SELF ONLY. CONFUSED AND NEEDS REDIRECTION OFTEN. IMPULSIVE AND WILL ATTEMPT TO GET UP AND WALK WITHOUT WALKER OR ASSISTANCE. VERY HIGH FALL RISK - COGNITIVE LIMITED ON UNDERSTANDING. EARLIER WAS PUTTING ON SNEAKERS TO LEAVE PREMISES - EXPLANATION OF REQUIREMENTS DID NOT GRASP. GOOD APPETITE ATE WELL - DAUGHTER VISITED AND WAS PLEASED. TOLERATES MEDICATIONS WHOLE WITH WATER. NO ISSUES. INCONTINENT AT TIMES BUT UTILIZED TOLLET TODAY. REMAINS ON MECHANICAL SOFT DIET WITH THIN LIQUIDS DUE TO TIA. PATIENT ASSESSED NO PAIN DISCOMFORT, HEART RATE STRONG AND STEADY AND LUNGS CLEAR ON AUSCULTATION. WHEN UP AND AROUND AIMS FOR EXIT DOOR SO CAN BE ELOPEMENT RISK AT TIMES. WILL CONTINUE TO MONITOR PATIENT FOR SAFETY AND ANY CONCERNS AND ADDRESS ACCORDINGLY.
--- NOTE | 2020-11-28 04:14 | NUR ---
RECEIVED CARE OF THIS PATIENT AT 1900. PATIENT ALERT TO SELF AND PLACE. CONFUSED. WANTS TO GO HOME AND HAS SOME STUFF PACKED TO GO HOME. EXPLAINED TO PATIENT SHE NEEDED TO STAY WITH ME TONIGHT. SHE SAID OK. NEEDED TO REPEAT SEVERAL TIMES. PATIENT NEVER TRIED TO GET OUT OF CHAIR WHILE SITTING UP NOR OUT OF BED WHEN IN BED. TOOK MEDS WITHOUT DIFFICULTY. DENIES PAIN.SLEPT MOST OF NIGHT. PARK WARDEN SHE TOOK OFF HER PANTS AND BRIEF.
[2020-11-28 07:15] VITALS: BP 167/70
--- NOTE | 2020-11-28 16:42 | NUR ---
Alert and confused. patient had no idea to call when getting up, on chair alarm. after help get up, patient walked to the bathroom with a walker and standby assist, tolerated well. denied pain, no nausea or vomiting.
[2020-11-28 19:40] VITALS: BP 138/53
--- NOTE | 2020-11-28 19:47 | HC ---
[facility] [place] [address] CONSULTATION Name: LIZY SZYMANSKI Room #: 513-P [facility] IN M.R.#: [id number] Admission: 11/18/20 Attend Phys: Brandon Turpin MD Discharge: Date of : 32 Report #: [id number] THIS REPORT FOR: cc: YIFAN TRAN,Joshua Sainz PhD ~ DATE OF SERVICE: 11/21/2020 NEUROBEHAVIORAL STATUS EXAM ATTENDING PHYSICIAN: Brandon Turpin M.D. ENVIRONMENTAL STUDIES PROFESSOR: Joshua Schaeffer, Ph.D. CLINICAL PRESENTATION: The patient is an 89-year-old female admitted to the [facility] with dizziness, expressive aphasia and generalized weakness. She had a shuffling gait for several weeks prior to this most recent medical event. Her assessment on admission to the rehabilitation unit is parkinsonism, history of right basal ganglia infarct, suspected TIA, DJD of the knees and back, anxiety, advanced dementia, hypertension, hypothyroidism and PCM. A complete description of her medical condition, history and medication can be found in her medical record. Neuropsychological consultation was recommended to provide assistance in the assessment of cognitive and behavioral mental status and to provide recommendations and services. Prior to this most recent admission, she was living with the assistance of her daughter. The patient has 2 children. 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 The patient has required assistance with basic and instrumental activities of daily living prior to this most recent medical event. TECHNIQUES UTILIZED: Clinical interview, review of medical records, staff consultation and behavioral observation, family interview -- daughter, mini mental status exam 2 standard version and clock drawing. EXAMINATION FINDINGS: The patient was unable to describe the reason for her hospitalization. She reports that she was living alone, was driving and managing her own medications and bills. However, she is an unreliable historian as her daughter indicates that she has been providing care for her and the patient had discontinued driving. Problems with her memory are described as of about 1 year duration and following an incident in which she fell and broke her arm. Her daughter and son have a joint power of attorney recruiter. Her symptoms are reported to include sleep disturbance, poor appetite, [facility] [address] [place] [address] CONSULTATION Name: LIZY SZYMANSKI Room #: 513-P [facility] IN M.R.#: [id number] Admission: 11/18/20 Attend Phys: Brandon Turpin MD Discharge: Date of : 32 Report #: [id number] tiredness and fatigue, deficits in memory and word finding. The patient has had a 40-pound weight loss since 05/2019. Severe deficits in motor planning, problem solving and immediatem memory. Her performance on the MMSE-2 brief version was extremely low with a raw score of 4/16. She was 3/3 for initial registration, 1/5 for orientation at times, 0/[address], 0/3 for immediate recall of 3 items after a brief time delay and distraction. Performance on the MMSE-2 standard version was extremely low with a raw score of 11 and 30. She was 0/5 for serial sevens, 2/2 for naming, 1/1 for repetition, 3/3 for auditory comprehension. She could read and follow a single command. The patient was unable to write a sentence or copy a simple geometric design. The patient could not draw a clock or set the hands at a designated time. Severe deficits in visual spatial construction and visual motor coordination are suggested. The patient is presenting with severe deficits in orientation, concentration/attention, immediate recall and executive functioning. DIAGNOSTIC IMPRESSION: Major neurocognitive disorder (dementia), possibly due to Alzheimer disease, with poor insight, severe level of severity. RECOMMENDATIONS: The patient will require continued assistance in the management of medication, finances and nutrition, Deficits in motor planning can lead to falls. Her daughter reportedly can provide the supervision necessary for her to maintain safety in the community. Thank you very much for allowing me to provide the consultation on this patient. <ELECTRONICALLY SIGNED> By: Joshua Schaeffer, PhD 11/28/20 [id number] Joshua Schaeffer, PhD /nt
[2020-11-29 07:15] VITALS: BP 129/67
--- NOTE | 2020-11-29 07:24 | NUR ---
ASSUME CARE 1900. PT/VITALS STABLE. DENIES ANY PAIN. A/O TO PERSON AND PLACE. FOLLOWS COMMANDS APPROPRIATELY AND ANSWERS QUESTIONS APPROPRIATELY. EPISODES OF CONFUSION NOTED. NO DISTRESS OTED THROUGH THE SHIFT. ADEQUATE REST NOTED. ASSESSMENT CHARTED. PROGRESSING WELL WITH POC. PLAN IS TO CONTINUE TO IMPROVE ON PHYSICAL ACTIVITY. WILL CONTINUE TO MONITOR AND FOLLOW WITH POC
[2020-11-29] MEDS ORDERED: LIPITOR40 MG PO (11:28)
[2020-11-29 19:01] VITALS: BP 147/47
--- NOTE | 2020-11-30 00:15 | NUR ---
PT ALERT AND ORIENTED X 1, PLEASANTLY CONFUSED. AMB TO BR WITH WALKER AND ASSIST X 1. HAND TREMORS NOTED AT TIMES. PT TAKES MEDS WITH WATER WITHOUT DIFFICULTY. PT DENIES PAIN OR DISCOMFORT. BED ALARM ON FOR SAFETY. PT APPEARS TO BE SLEEPING ON HOURLY ROUNDS.
[2020-11-30 07:30] VITALS: BP 145/60
--- NOTE | 2020-11-30 08:45 | NUR ---
PT SITTING IN W/C THIS AM. PT WAS UP TO BATHROOM X1 ASSIST WITH WALKER. PT WAS CON. OF URINE. PT DENIES ANY PAIN. PT TOOK MEDS ONE AT A TIME WITHOUT ANY ISSUES. NO SIGNS OF TREMORS. PT GOING HOME TODAY. PT KNOWS AND NAME.
--- NOTE | 2020-11-30 10:59 | PLAN ---
[facility] [place] [address] REHAB UNIT PLAN OF CARE Name: LIZY SZYMANSKI Room #: 513-P [facility] IN M.R.#: [id number] Admission: 11/18/20 Attend Phys: Brandon Turpin MD Discharge: Date of : 32 Report #: [id number] THIS REPORT FOR: cc: YIFAN TRAN HUONG DO Smithson,Brandon Matamoros MD ~ DATE OF SERVICE: 11/20/2020 PROGRESS NOTE/OVERALL PLAN OF CARE HISTORY OF PRESENT ILLNESS: The patient was seen back in followup. I had a discussion with the daughter yesterday regarding her status and the effects of the noted prior stroke on her diagnostic imaging. She does have some stiffness and tremor thought to be consistent with a right basal ganglia. No focal calf swelling. She is able to eat with setup. Transfers are at a max assist level with gait max assist x2 to 12 feet with a front-wheeled walker. In occupational therapy, lower body dressing has moderate assistance, upper body dressing with min assist. In speech therapy, she is on a mechanical soft diet with thin liquids. She did have a bedside swallow evaluation yesterday as noted. ASSESSMENT: 1. 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 2. Suspected transient ischemic attack. 3. 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 4. Anxiety. 5. History of advanced dementia. 6. Hypertension. 7. Hypothyroidism. 8. Protein calorie malnutrition. PLAN: The overall plan of care is based on the pre-admission screen and information garnered from therapy assessments. 1. Estimated length of stay is probably around 10-14 days pending progress. 2. Medical prognosis is reasonably good. 3. Anticipated interventions includes the acute inpatient rehabilitation program. 4. Anticipated functional would be for the patient to become modified independent with transfers, mobility and ADLs at a walker level and also to improve as far as overall swallowing issues with speech therapy. Continue to work with this, although she appears to be doing better. DISCHARGE DESTINATION: Would be back home with the daughter who is very involved with her care. Therapy by discipline includes PT, OT and speech 1 hour per day each 5 days a week throughout the duration of the acute inpatient rehabilitation stay. We may be able to taper off speech therapy in favor of more PT and OT [address] [address] REHAB UNIT PLAN OF CARE Name: STEPHONLIZY JEROME Room #: 513-P [facility] IN .R.#: [id number] Admission: 11/18/20 Attend Phys: Brandon Turpin MD Discharge: Date of : 32 Report #: [id number] depending upon how she does. ADDENDUM: The patient's significant practical improvement within a reasonable period of time appears good. Given the patient's risk of further medical complication, rehabilitation services could not be safely provided at a lower level of care such as penitentiary facility. <ELECTRONICALLY SIGNED> By: Brandon Turpin MD 11/30/20 1059 [id number] Brandon Turpin MD /da
[2020-11-30 11:15] VITALS: BP 145/60
--- NOTE | 2020-11-30 11:35 | NUR ---
DTR CHOCO HERE AND READY TO TAKE MOM HOME.
--- NOTE | 2020-11-30 12:08 | NUR ---
PT LEFT VIA W/C TO HOME. PT HAS OWN GAIT BELT ON HER. DTR UNDERSTOOD D/C ORDERS AND PT UNDERSTANDS ABOUT GOING HOME. PT HAS PERSONAL WALKER ALSO. PT WILL BE GETTING HOME HEALTH.
--- NOTE | 2020-12-01 13:59 | NUR ---
I have reviewed the documentation by Maru Hawthorne from 11/29/20 to 11/29/20 and I concur with it. KAMLA VAZQUEZ
--- NOTE | 2020-12-11 16:45 | NUR ---
D/C CARE TOOL FOR LIZY SZYMANSKI FOR 11/30/20: SUPINE TO SIT: SUPERV SIT TO SUPINE: CGA ROLLING RIGHT AND LEFT: CGA TRANSFERS: CGA GAIT: CGA FOR 200 FEET WITH FWW, CGA FOR 80 FEET WITH PATIENT SAFETY MANAGER STAIRS: CGA FOR 12 STEPS WITH 1-2 RAILS UNEVEN SURFACE: CGA WITH FWW PICKING UP ITEM: CGA WITH FWW W/C: NOT APPLICABLE Pt REQUIRED FREQUENT CUES FOR SAFETY WITH ALL MOBILITY DUE TO DEMENTIA.
== END 2020-11-30 12:11 | disposition home health service (06) | DRG 57 ==
PROVIDERS: Nurse Practitioner; Nurse Practitioner Family; ADMIT Physical Medicine & Rehabilitation; ATTEND Physical Medicine & Rehabilitation
DX: G20 Parkinson's disease (principal); E46 Unspecified protein-calorie malnutrition; G45.9 Transient cerebral ischemic attack, unspecified; R53.81 Other malaise; F02.80 Dementia in other diseases classified elsewhere, unspecified severity, without behavioral disturbance, psychotic disturbance, mood disturbance, and anxiety; F01.50 Vascular dementia, unspecified severity, without behavioral disturbance, psychotic disturbance, mood disturbance, and anxiety; F32.9 Major depressive disorder, single episode, unspecified; E89.0 Postprocedural hypothyroidism; M17.10 Unilateral primary osteoarthritis, unspecified knee; F41.9 Anxiety disorder, unspecified; Z68.21 Body mass index [BMI] 21.0-21.9, adult; Z79.82 Long term (current) use of aspirin; Z79.899 Other long term (current) drug therapy; Z88.0 Allergy status to penicillin; Z88.8 Allergy status to other drugs, medicaments and biological substances; Z90.710 Acquired absence of both cervix and uterus; Z87.891 Personal history of nicotine dependence; R13.12 Dysphagia, oropharyngeal phase
CPT/HCPCS: 10112